=== PATIENT | female | born 2005 | race Caucasian/White ===

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

== ENCOUNTER 2023-10-27 09:30 | Outpatient (CLI) | payer OTHER, SELFPAY ==
[2023-10-27 13:25] LABS: Chlamydia DNA Amplified* NOT DETECTED (No Detected); GC DNA Amplified* NOT DETECTED (No Detected)
== END 2023-10-27 09:31 | disposition home or self-care (01) ==
LOC: NFLDREF 09:31
PROVIDERS: PCP Physician Assistant Medical; Visit Provider Registered Nurse
DX: R10.2 Pelvic and perineal pain (principal); Z11.3 Encounter for screening for infections with a predominantly sexual mode of transmission
CPT/HCPCS: 87491; 87591

== ENCOUNTER 2023-11-12 14:44 | Outpatient (CLI) | payer OTHER, SELFPAY ==
--- NOTE | 2023-11-12 15:00 | CRLHL7_ITS ---
For Patients: As a result of the Century Cures Act, medical imaging exams and procedure reports are released immediately into your electronic medical record. You may view this report before your referring provider. If you have questions, please contact your health care provider. CLINICAL HISTORY: pain in pelvis TECHNIQUE: 2D mittal scale ultrasound. In addition color Doppler and spectral Doppler analysis was performed of the pelvis using a transvaginal approach. FINDINGS: On transvaginal imaging, the myometrium has a normal uniform echotexture. The uterus measures 5.7 x 3.9 x 3.8 cm. IUD is present within the lower uterine segment. Endometrium measures 4 millimeters. The right ovary measures 3.5 x 1.8 x 2.6 cm in size and the left ovary measures 3.5 x 1.7 x 2.7 cm. The ovaries demonstrate normal arterial and venous blood flow on color Doppler and spectral Doppler analysis. There are no suspicious fluid collections within the cul-de-sac. IMPRESSION: IUD is located in the lower uterine segment. Dictated by Ynr Solo MD @ 11/12/2023 3:55:40 PM (Electronically Signed)
== END 2023-11-12 14:45 | disposition home or self-care (01) ==
LOC: US 14:45
PROVIDERS: PCP Physician Assistant Medical; Visit Provider Registered Nurse
DX: R10.2 Pelvic and perineal pain (principal)
CPT/HCPCS: 76830; 93976

== ENCOUNTER 2024-04-28 09:47 | Outpatient (CLI) | payer BC, SELFPAY | END 2024-04-28 09:48 | disposition home or self-care (01) | PROVIDERS: PCP Physician Assistant Medical; Visit Provider Physician Assistant Medical | DX: R00.2 Palpitations (principal); R53.83 Other fatigue | CPT/HCPCS: 93306 ==

== ENCOUNTER 2024-05-12 10:18 | Outpatient (CLI) | payer BC, SELFPAY | END 2024-05-12 10:19 | disposition home or self-care (01) | LOC: FRMREF 10:20 | PROVIDERS: PCP Physician Assistant Medical; Visit Provider Physician Assistant Medical | DX: R00.0 Tachycardia, unspecified (principal) | CPT/HCPCS: 82533; 86140 ==

== ENCOUNTER 2024-08-30 11:17 | Outpatient (CLI) | payer BC, SELFPAY | END 2024-08-30 11:18 | disposition home or self-care (01) | PROVIDERS: PCP Physician Assistant Medical; Visit Provider Physician Assistant Medical | DX: G93.32 Myalgic encephalomyelitis/chronic fatigue syndrome (principal) | CPT/HCPCS: 86618; 87468; 87469; 87484; 87798 ==